=== PATIENT | male | born 1945 | race Caucasian/White ===

== ENCOUNTER 2021-04-14 18:05 | Observation (INO) | payer MEDICARE, SELFPAY ==
--- NOTE | 2021-04-14 | ECG_ITS ---
APPROVED REPORT Exam: Resting ECG HR:90 bpm ECG Measurements Heart Rate 90 AXES AK 149 P 157 QRSd 145 QRS 253 QT 381 T 64 QTc 428 Conclusion ELECTRONIC ATRIAL PACEMAKER ELECTRONIC VENTRICULAR PACEMAKER ABNORMAL RHYTHM ECG UNCONFIRMED REPORT Electronically signed by : Alan Burgess MD 04/15/2021 15:02:46
[2021-04-14 18:10] VITALS: BP 137/77; PULSE 77; RESP 18; TEMP 36.8; O2SAT 98; BMI 24.7
[2021-04-14 18:12] VITALS: BMI 24.7
--- NOTE | 2021-04-14 18:13 | XR_ITS ---
PROCEDURE INFORMATION: Exam: XR Chest Exam date and time: 04/14/2021 6:13 PM Age: 75 years old Clinical indication: Shortness of breath; Additional info: Chest pain TECHNIQUE: Imaging protocol: XR of the chest. Views: 1 view. COMPARISON: No relevant prior studies available. FINDINGS: Tubes, catheters and devices: Pacemaker demonstrated. Lungs: The lungs are clear. No regions of consolidation or pleural effusion. Pleural spaces: No regions of pleural effusion. Heart/Mediastinum: Heart normal in size. Bones/joints: Sternotomy residuals. Incomplete visualization of cervical spine fusion. IMPRESSION: No evidence of acute cardiopulmonary disease.
--- NOTE | 2021-04-14 18:15 | PC.NURSE ---
Radiology at bedside
--- NOTE | 2021-04-14 18:20 | PC.NURSE ---
ED MD at
[2021-04-14 18:28] LABS: Basophils # 0.1 K/mm3 (0-0.2); Basophils % 1.3 % (0.1-2.0); Eosinophils # 0.2 K/mm3 (0.0-0.4); Hematocrit 41.5 % (42.0-52.0); Hemoglobin 13.3 g/dL (14.1-18.0); Lymphocytes % 31.3 % (10-50); Mean Corpuscular HGB Conc 32.2 g/dL (31.8-35.4); Mean Corpuscular Hemoglobin 30.5 pg (27.0-31.2); Mean Corpuscular Volume 94.8 fl (80-94); Mean Platelet Volume 7.6 fl (7.4-10.4); Monocytes # 0.3 K/mm3 (0.1-1.0); Monocytes % 5.1 % (1.7-9.3); Neutrophils # 3.8 K/mm3 (1.8-7.8); Neutrophils % 59.3 % (37.0-80.0); Platelet Count 231 K/mm3 (142-424); Red Blood Count 4.38 M/mm3 (4.60-6.20); Red Cell Distribution Width 13.6 % (11.5-17.5); White Blood Count 6.4 K/mm3 (4.8-10.8)
[2021-04-14 18:31] VITALS: BP 113/86; PULSE 90; RESP 18; O2SAT 97
--- NOTE | 2021-04-14 18:33 | HMH.EDCP ---
ED Disposition Clinical Impression: Unstable angina pectoris Disposition: Admitted As Inpatient Condition on Discharge: Fair - Critical Care Critical Care Time: No Attestation: On 04/14/21, the high probability of a clinically significant, sudden or life threatening deterioration of the following system(s) required my full and direct attention, intervention and personal management. The time I documented below is in addition to time spent performing reported procedures but includes the following listed in this critical care notation. Medical Decision Making - Medical Records Medical records reviewed: Yes: I reviewed the patient's medical records. - Luis Enrique Inquiry Pt receiving controlled substance: No Vital Signs: 04/14/21 18:10 04/14/21 18:31 04/14/21 19:00 Temperature 98.3 F Temperature Source Oral Pulse Rate 90 76 Pulse Rate [Left Radial] 77 Respiratory Rate 18 18 20 Blood Pressure 113/86 131/67 Blood Pressure [Right Arm] 137/77 Blood Pressure Mean 98 98 Blood Pressure Mean [Right Arm] 97 Blood Pressure Source [Right Arm] Automatic Cuff Blood Pressure Position [Right Arm] Sitting 02 Sat by Pulse Oximetry 98 97 95 Oxygen Delivery Method Room Air - Lab Data Lab Results 04/14/21 18:12: WBC 6.4, RBC 4.38 L, Hgb 13.3 L, Hct 41.5 L, MCV 94.8 H, MCH 30.5, MCHC 32.2, RDW 13.6, Plt Count 231, MPV 7.6, Neut % (Auto) 59.3, Lymph % (Auto) 31.3, [place] % (Auto) 5.1, Eos % (Auto) 3.0, Baso % (Auto) 1.3, Neut # (Auto) 3.8, Lymph # (Auto) 2.0, [place] # (Auto) 0.3, Eos # (Auto) 0.2, Baso # (Auto) 0.1 04/14/21 18:12: Sodium 131 L, Potassium 4.4, Chloride 99, Carbon Dioxide 23, Anion Gap 13.4, BUN 19, Creatinine 0.80, Estimated Creat Clear 62, Estimated GFR 94, Est GFR ( Amer) 114, Glucose 308 H, Calcium 9.1, Troponin I < 0.01 Result diagrams: 04/14/21 18:12 04/14/21 18:12 Orders (Tests/Meds): ORDERS Category Date Time Status Consult to Cardiology [CONS] Routine Cons 04/14/21 19:37 Active CXR --portable [XR chest portable] Stat Exams 04/14/21 18:13 Taken Troponin I Q3H Lab 04/14/21 21:15 Ordered Troponin I Q3H Lab 04/15/21 00:15 Ordered - Radiology Data #1 Image(s): Chest Image Reviewed: Yes I reviewed the patient's radiology results, Yes I reviewed the patient's radiology image, Yes I have reviewed radiologist's interpretation Preliminary Findings: Normal/NAD - ECG Data Tracing #1 I reviewed this ECG and interpreted as documented below: Ventricular rate at 90 bpm, electronic atrial ventricular pacemaker. Nonspecific changes. ECG initial impression date: 04/14/21 ECG initial impression time: 18:05 - Reevaluation(s) Time: 19:53 Reevaluation #1: On reevaluation, patient continues to endorse some intermittent chest pain. Given the patient's history I do feel he requires admission cardiac evaluation. Cardiology notified. Patient admitted to hospital for further evaluation and treatment. - FLORENCIA Score for Non-Stemi Age of Patient: 70-79 years old Heart Rate: 70-89 bpm Systolic Blood Pressure: 120-139 mmhg Serum Creatinine: <0.40 mg/dl CHF Killip Class: I-No CHF Other Risk Factors: None Non-Stemi Risk Score: 119 Risk Stratification: 109-140 = Intermediate Ri Medical Decision Narrative: 75-year-old male presented to the emergency department with some chest discomfort. Patient does have a history of significant coronary disease. Patient is actually pain-free at this time. Work-up initiated. Chest Pain HPI - General Chief Complaint: Chest Pain Stated Complaint: chest pain Time Seen by Provider: 04/14/21 18:15 Mode of Arrival: Ambulatory Limitations: No Limitations Description of Symptoms (Recalled from ER Triage Doc. by RN): to ed per pvt car with c/o rapid heart rate, anxiety starting last week went to hospital and is now wearing a halter monitor. pt appears anxious. pt denies any new changes in diet or meds. pt denies any chest pain states rapid hea
[2021-04-14 18:36] LABS: Anion Gap 13.4 mEq/L (5-15); Blood Urea Nitrogen 19 mg/dl (9-20); Calcium 9.1 mg/dl (8.4-10.2); Carbon Dioxide 23 mmol/L (22.0-30.0); Chloride 99 mmol/L (98-107); Creatinine Clearance Estimated 62 mL/min (50-200); Estimated Glomerular Filt Rate 94 ml/min (>60); GFR (African American) 114 ML/MIN (>60); Glucose 308 mg/dl (74-100); Potassium 4.4 mmoL/L (3.5-5.1); Sodium 131 mmol/L (136-145)
[2021-04-14 18:50] LABS: Troponin I < 0.01 ng/ml (0.00-0.034)
[2021-04-14 19:00] VITALS: BP 131/67; PULSE 76; RESP 20; O2SAT 95
[2021-04-14 20:32] LABS: Coronavirus 19, PCR Not Detected (NotDetected); Influenza A, PCR Not Detected (NotDetected); Influenza B, PCR Not Detected (NotDetected)
[2021-04-14 21:08] VITALS: BP 130/60; PULSE 77; RESP 18; TEMP 36.8; O2SAT 99
--- NOTE | 2021-04-14 21:17 | PC.NURSE ---
patient up to floor via wheelchair.
[2021-04-14 22:01] VITALS: BP 175/76; PULSE 85; RESP 18; TEMP 36.4; O2SAT 98
[2021-04-14 22:30] VITALS: O2SAT 98
[2021-04-14 22:57] LABS: Troponin I < 0.01 ng/ml (0.00-0.034)
[2021-04-15] VITALS (15 sets, daily range): BP systolic 126–163; BP diastolic 68–87; PULSE 70–90; RESP 17–20; TEMP 36.2–36.7; O2SAT 97–100; BMI 23.8; BMI 23.7
--- NOTE | 2021-04-15 | IR_ITS ---
APPROVED REPORT Patient Location: Inpatient PROCEDURES Left heart catheterization Left ventriculogram Selective coronary angiogram Selective engage left internal mammary artery Right internal mammary artery angiography Selective engagement of the saphenous vein graft to the circumflex artery Selective engagement of saphenous vein graft to the right coronary INDICATION Coronary artery disease, History of coronary bypass surgery, Unstable angina, Informed consent was obtained prior to the procedure. COMPLICATIONS None Estimated Blood Loss: Less than 10 mls TECHNIQUE One percent lidocaine used to anesthetize the right groin. The right femoral artery was accessed via the Seldinger technique and a 5 Pashto sheath was placed in the right femoral artery. A JL 4, JR4 catheter were used to perform left heart catheterization, left ventriculogram selective coronary angiography as well as selective engagement of the 2 vein grafts and the left internal mammary artery. Because the saphenous vein graft to the right coronary was not easily cannulated it was felt patient may have had a STEPHANIE graft therefore the JR4 catheter was placed in the right subclavian artery and nonselective angiography was performed. After it was determined the STEPHANIE was patent to the chest wall a multipurpose catheter was then placed into the ascending aorta and this catheter was used to cannulate the saphenous vein graft to the right port coronary artery where angiography was performed. At the end the procedure the apparatus was removed the sheath was removed and hemostasis was achieved using manual pressure patient was transferred to postop putting a stable addition at the end of the procedure the patient was transferred to the postop holding area in stable condition for sheath removal. ANGIOGRAPHIC RESULTS The left main artery Distally occluded The right coronary artery Proximally occluded The HAN ventriculogram reveals Preserved ejection fraction estimated 50 to 55% The left ventricular end-diastolic pressure 10 mmHg Left internal mammary artery is widely patent LAD Saphenous vein graft to circumflex artery has stents in the ostial proximal segment are widely patent. There is a venous valve in the mid segment which appears to create a 20 to 30% stenosis however the stenotic area is actually larger in diameter than the [place]ajo circumflex artery in which it anastomosis Saphenous vein graft to the distal dominant right coronary is widely patent STEPHANIE graft patent to the chest wall IMPRESSION Coronary disease as described above Preserved ejection fraction Normal left ventricular diastolic pressure PLAN 1. Treatment of endothelial dysfunction 2. Maximize antianginal medications 3. Maximize Ranexa and nitrates Electronically signed by : Esau Rivas MD 04/15/2021 12:55:34
[2021-04-15 01:06] LABS: Troponin I < 0.01 ng/ml (0.00-0.034)
[2021-04-15 06:11] LABS: POC Glucose,Bedside 253 (70-110)
[2021-04-15 06:39] LABS: Basophils # 0.1 K/mm3 (0-0.2); Eosinophils # 0.2 K/mm3 (0.0-0.4); Eosinophils % 4.2 % (0.1-12.0); Hematocrit 38.9 % (42.0-52.0); Hemoglobin 12.3 g/dL (14.1-18.0); Lymphocytes # 2.4 K/mm3 (0.7-4.5); Lymphocytes % 46.1 % (10-50); Mean Corpuscular HGB Conc 31.7 g/dL (31.8-35.4); Mean Corpuscular Hemoglobin 29.8 pg (27.0-31.2); Monocytes # 0.3 K/mm3 (0.1-1.0); Monocytes % 5.5 % (1.7-9.3); Neutrophils # 2.2 K/mm3 (1.8-7.8); Neutrophils % 43.3 % (37.0-80.0); Platelet Count 192 K/mm3 (142-424); Red Blood Count 4.14 M/mm3 (4.60-6.20); Red Cell Distribution Width 13.7 % (11.5-17.5); White Blood Count 5.2 K/mm3 (4.8-10.8)
--- NOTE | 2021-04-15 06:40 | PC.NURSE ---
pt slept most of night, pt denied any chest pain through the night, fsbs 263 this morning, pt a&ox 4, VSS, tele = NSR
[2021-04-15 06:47] LABS: Anion Gap 10.2 mEq/L (5-15); Blood Urea Nitrogen 17 mg/dl (9-20); Calcium 8.3 mg/dl (8.4-10.2); Carbon Dioxide 24 mmol/L (22.0-30.0); Chloride 103 mmol/L (98-107); Creatinine Clearance Estimated 60 mL/min (50-200); Estimated Glomerular Filt Rate 131 ml/min (>60); GFR (African American) 159 ML/MIN (>60); Glucose 304 mg/dl (74-100); Potassium 4.2 mmoL/L (3.5-5.1); Sodium 133 mmol/L (136-145)
--- NOTE | 2021-04-15 07:34 | HMH.PHAVTE ---
[facility] Pharmacy VTE Monitoring - Patient Demographics Admission date: 04/15/21 Report Date: 04/15/21 Time: 07:34 Allergies/Adverse Reactions: Patient Allergies No Known Allergies Allergy (Verified 01/01/19 10:36) Height: 1.68 m Weight: 67.404 kg Patient Problems: Current Active Problems Unstable angina pectoris (Acute) - VTE Risk Labs: VTE Related Lab Results Hgb 12.3 g/dL (14.1-18.0) L 04/15/21 05:41 Hct 38.9 % (42.0-52.0) L 04/15/21 05:41 Plt Count 192 K/mm3 (142-424) 04/15/21 05:41 BUN 17 mg/dl (9-20) 04/15/21 05:41 Creatinine 0.60 mg/dl (0.66-1.25) L D 04/15/21 05:41 Estimated Creat Clear 60 mL/min (50-200) 04/15/21 05:41 Was VTE Risk Assessment Performed: Yes VTE Score: 3 VTE Risk Level: Low Risk Clinical Trial Participant: No - Prophylaxis VTE Prophylaxis Ordered?: Yes Types of VTE Prophylaxis: TEDS Knee High, Pharmacological Pharmacologic Type: Heparin
--- NOTE | 2021-04-15 08:03 | HMH.HP ---
*Admission Date: 04/15/21 *Chief complaint: chest pain *History of present illness: Mr. Fontaine is a pleasant 75-year-old male with extensive cardiac history. Had CABG performed in 2009. Has had a subsequent left heart cath in 2019, no stents at that time per my understanding. Came to the ER due to progressive chest pain over the past few weeks. He had just seen his doctor (Dr. Davis) yesterday for progressive chest pain with exertion and at rest. His primary care contacted cardiology who recommended patient come in for further work-up. On arrival, he was found to have significant hyperglycemia, elevated blood pressure, Serial troponins within normal range. Notes he had a response to nitroglycerin for his chest pain after taking 2 tabs. Admitted for further work-up. Cardiology consulted, has seen the patient this morning. Planning for left heart cath today. Patient denies any shortness of breath, nausea, vomiting, diarrhea. Alert and oriented x3. [facility] History I have reviewed the patient's past medical history: Yes Medical History: Reports:: Carotid Stenosis, Coronary Artery Disease, Diabetes Mellitus Type 2, Gastroesophageal Reflux Disease(GERD), Hyperlipidemia, Hypertension, Internal Pacemaker Denies:: Cancer, Diabetes Mellitus Type 1, MRSA *Have you ever received a pneumonia vaccine?: No *Have you received a flu vaccine this season?: Yes Other Medical History: Reports: Cataracts Other Surgeries: Yes: CABG, Cardiac Catheterization, Hernia Repair, Pacemaker Fractures: Yes (broken collar bone) - *Social History Last grade of school completed: GED Smoking Status: Former smoker Smoking End Date: 40 years ago Alcohol Intake: never Substance Use Type: denies use *Occupational Status:: employed, retired Housing: house Household Members: spouse *Travel in the last 8 weeks: None Family Hx:: Hypertension Review of Systems - Review of Systems Review of systems:: pertinent systems reviewed and negative unless documented below (14 point review of systems performed, pertinent positives and negatives as per HPI) - *Neurologic Denies headache(s) Meds Home Medications Medication Instructions Recorded Confirmed Type aspirin 81 mg tablet,delayed 81 mg PO DAILY 01/01/19 04/14/21 History release metformin 500 mg tablet 500 mg PO BID 01/01/19 04/14/21 History Clopidogrel Bisulfate [Plavix] 75 mg PO DAILY 04/14/21 04/14/21 History Multivitamin 1 tab PO DAILY 04/15/21 04/15/21 History Allergies Allergy/AdvReac Type Severity Reaction Status Date / Time No Known Allergies Allergy Verified 01/01/19 10:36 Exam Vital signs and Labs for Last 24 Hours: Temp Pulse Resp BP Pulse Ox 98.0 F 77 20 163/87 H 100 04/15/21 07:46 04/15/21 07:46 04/15/21 07:46 04/15/21 07:46 04/15/21 07:46 Laboratory Results - last 24 hr 04/14/21 18:12: WBC 6.4, RBC 4.38 L, Hgb 13.3 L, Hct 41.5 L, MCV 94.8 H, MCH 30.5, MCHC 32.2, RDW 13.6, Plt Count 231, MPV 7.6, Neut % (Auto) 59.3, Lymph % (Auto) 31.3, [place] % (Auto) 5.1, Eos % (Auto) 3.0, Baso % (Auto) 1.3, Neut # (Auto) 3.8, Lymph # (Auto) 2.0, [place] # (Auto) 0.3, Eos # (Auto) 0.2, Baso # (Auto) 0.1 04/14/21 18:12: Sodium 131 L, Potassium 4.4, Chloride 99, Carbon Dioxide 23, Anion Gap 13.4, BUN 19, Creatinine 0.80, Estimated Creat Clear 62, Estimated GFR 94, Est GFR ( Amer) 114, Glucose 308 H, Calcium 9.1, Troponin I < 0.01 04/14/21 20:30: SARS-CoV-2 (PCR) Not detected, Influenza A Untype (PCR) Not detected, Influenza Type B (PCR) Not detected 04/14/21 21:45: Troponin I < 0.01 04/14/21 22:34: POC Glucose 253 H 04/15/21 00:17: Troponin I < 0.01 04/15/21 05:41: WBC 5.2, RBC 4.14 L, Hgb 12.3 L, Hct 38.9 L, MCV 94.0, MCH 29.8, MCHC 31.7 L, RDW 13.7, Plt Count 192, MPV 8.0, Neut % (Auto) 43.3, Lymph % (Auto) 46.1, [place] % (Auto) 5.5, Eos % (Auto) 4.2, Baso % (Auto) 1.0, Neut # (Auto) 2.2, Lymph # (Auto) 2.4, [place] # (Auto) 0.3, Eos # (Auto) 0.2, Baso # (Auto) 0.1 04/15/21 05:41: Sodium 1
--- NOTE | 2021-04-15 08:06 | HMH.CNCARD ---
History of Present Illness Consult date: 04/15/21 Requesting physician: David Larkin Consult reason: chest pain Chief complaint: UAP Additional Medical History:: 1. Diabetes mellitus, poorly controlled with patient reported hemoglobin A1c of 14 2. Coronary artery disease with history of bypass in 2009 A. Left heart catheterization, Dr. oJn Blanch, no stenting per patient B. Unstable angina pectoris 04/2021 3. History of pacemaker insertion, 2009, patient is unsure of brand 4. Right carotid bruit on exam 04/15/2021 5. Peripheral vascular disease with history of prior intervention per patient, records unavailable at this time 6. Remote history of tobacco use 7. Hypertension 8. Hyperlipidemia History of present illness: 75-year-old white male with coronary disease as noted above presented to [facility] for admission due to 6 months history of increasing exertional chest discomfort. Patient was seen by his family doctor Dr. Davis yesterday and instructed to be seen by Cardiology for further evaluation but since patient has previously seen Dr. Rivas he elected to come here for evaluation and admission. He did take 2 nitroglycerin at home with improvement in symptoms. Patient has had no further chest pain overnight. His reported troponins have returned normal x3 overnight his EKG shows a paced rhythm. Patient takes only an aspirin along with his Metformin and does relate dietary indiscretion and a hemoglobin A1c of 14. Discussed with Dr. Rivas and recommendation for left heart catheterization with grafts today. [facility] History Medical History: Reports:: Carotid Stenosis, Coronary Artery Disease, Diabetes Mellitus Type 2, Gastroesophageal Reflux Disease(GERD), Hyperlipidemia, Hypertension, Internal Pacemaker Denies:: Cancer, Diabetes Mellitus Type 1, MRSA *Have you ever received a pneumonia vaccine?: No *Have you received a flu vaccine this season?: Yes Other Medical History: Reports: Cataracts Other Surgeries: Yes: CABG, Cardiac Catheterization, Hernia Repair, Pacemaker Fractures: Yes (broken collar bone) - *Social History Last grade of school completed: GED Smoking Status: Former smoker Smoking End Date: 40 years ago Alcohol Intake: never Substance Use Type: denies use *Occupational Status:: employed, retired Housing: house Household Members: spouse *Travel in the last 8 weeks: None Family Hx:: Hypertension Meds Home Medications Medication Instructions Recorded Confirmed Type aspirin 81 mg tablet,delayed 81 mg PO DAILY 01/01/19 04/14/21 History release metformin 500 mg tablet 500 mg PO BID 01/01/19 04/14/21 History Clopidogrel Bisulfate [Plavix] 75 mg PO DAILY 04/14/21 04/14/21 History Multivitamin 1 tab PO DAILY 04/15/21 04/15/21 History Allergies Allergy/AdvReac Type Severity Reaction Status Date / Time No Known Allergies Allergy Verified 01/01/19 10:36 Exam Vital signs and Labs for Last 24 Hours: Temp Pulse Resp BP Pulse Ox 98.0 F 77 20 163/87 H 100 04/15/21 07:46 04/15/21 07:46 04/15/21 07:46 04/15/21 07:46 04/15/21 07:46 Laboratory Results - last 24 hr 04/14/21 18:12: WBC 6.4, RBC 4.38 L, Hgb 13.3 L, Hct 41.5 L, MCV 94.8 H, MCH 30.5, MCHC 32.2, RDW 13.6, Plt Count 231, MPV 7.6, Neut % (Auto) 59.3, Lymph % (Auto) 31.3, [place] % (Auto) 5.1, Eos % (Auto) 3.0, Baso % (Auto) 1.3, Neut # (Auto) 3.8, Lymph # (Auto) 2.0, [place] # (Auto) 0.3, Eos # (Auto) 0.2, Baso # (Auto) 0.1 04/14/21 18:12: Sodium 131 L, Potassium 4.4, Chloride 99, Carbon Dioxide 23, Anion Gap 13.4, BUN 19, Creatinine 0.80, Estimated Creat Clear 62, Estimated GFR 94, Est GFR ( Amer) 114, Glucose 308 H, Calcium 9.1, Troponin I < 0.01 04/14/21 20:30: SARS-CoV-2 (PCR) Not detected, Influenza A Untype (PCR) Not detected, Influenza Type B (PCR) Not detected 04/14/21 21:45: Troponin I < 0.01 04/14/21 22:34: POC Glucose 253 H 04/15/21 00:17: Troponin I < 0.01 04/15/21 05:41: WBC 5.2, RBC 4.14 L
--- NOTE | 2021-04-15 08:14 | HMH.PHAINT ---
Home med rec complete
[2021-04-15 10:26] LABS: Hemoglobin A1C 13.7 % (4.0-6.0)
--- NOTE | 2021-04-15 11:15 | PC.NURSE ---
medical lab scientist staff at bedside to take patient for heart cath
--- NOTE | 2021-04-15 12:39 | CA_ITS ---
FINAL REPORT TECHNIQUE: Color Doppler, duplex Doppler and grayosn scale sonography of the bilateral neck arterial vasculature was performed. Velocities were measured in the carotid arteries. Stenosis evaluation based on the validated velocity criteria. CLINICAL HISTORY: RT CARTOID BRUIT,CAD,DM,HTN,HLD FINDINGS: The peak systolic velocity of the right common carotid artery is 46 cm/s. The peak systolic velocity of the right internal carotid artery is 270 cm/s and end diastolic velocity 114 cm/s. The ICA/CCA ratio is 9.34. A large amount of plaque is present. The right external carotid artery is patent. The right vertebral artery is patent with antegrade flow. There is no definite flow is identified in the left common carotid artery. The peak systolic velocity of the left internal carotid artery is 137 cm/s and end diastolic velocity 25 cm/s. This is probably due to a greater than 90% stenosis of the left common carotid artery. A large amount of plaque is present. The left external carotid artery is patent.The left vertebral artery is patent with antegrade flow. IMPRESSION: 70-99 % right carotid stenosis. Greater than 90% left carotid stenosis. Bilateral patent vertebral arteries with antegrade flow. Recommend CTA or catheter angiogram could further evaluate. Preliminary results were called to DARYL Stanley by the medical technologist generalist at the time of exam. Reviewed, Interpreted and Dictated by Dwayne Quiñonez III, MD Transcribed by Chanel Bojorquez Authenticated by Dwayne Quiñonez III, MD on 04/15/2021 03:32:[address] [facility]
--- NOTE | 2021-04-15 14:50 | CT_ITS ---
FINAL REPORT TECHNIQUE: Thin section axial CT with IV contrast supplemented with multiplanar reconstruction under CT angiogram protocol. This study was performed with techniques to keep radiation doses as low as reasonably achievable (ALARA). Individualized dose reduction techniques using automated exposure control or adjustment of mA and/or kV according to the patient''s size were employed. NASCET criteria was utilized during interpretation. CLINICAL HISTORY: bilateral carotid artery disease FINDINGS: Right carotid: There is mild narrowing of the distal right common carotid artery with 90% stenosis at the level of the carotid bulb. The more distal right ICA is patent. Mild stenosis is seen of the distal right ICA, less than 50%. Right ECA is patent. The left common carotid artery is occluded proximally with collateral fill of a small caliber left internal carotid artery from left external carotid artery collaterals. There is moderate stenosis of the distal left ICA of approximately 50%. Vertebral: Left vertebral artery is dominant. No significant stenosis is present. IMPRESSION: 90% stenosis of the right internal carotid artery at the bulb. Occlusion of the left common carotid artery with reconstitution of a small caliber internal carotid artery due to left external carotid artery collaterals. Reviewed, Interpreted and Dictated by Dwayne Quiñonez III, MD Transcribed by Jonna Vera Authenticated by Dwayne Quiñonez III, MD on 04/15/2021 04:54:33 PM [facility]
[2021-04-15 17:39] LABS: POC Glucose,Bedside 207 (70-110)
--- NOTE | 2021-04-15 18:04 | [facility].DCSUM ---
General - General Admission date:: 04/14/21 Discharge date: 04/15/21 HPI HPI: Mr. Fontaine is a pleasant 75-year-old male with extensive cardiac history. Had CABG performed in 2009. Has had a subsequent left heart cath in 2019, no stents at that time per my understanding. Came to the ER due to progressive chest pain over the past few weeks. He had just seen his doctor (Dr. Davis) yesterday for progressive chest pain with exertion and at rest. His primary care contacted cardiology who recommended patient come in for further work-up. On arrival, he was found to have significant hyperglycemia, elevated blood pressure, Serial troponins within normal range. Notes he had a response to nitroglycerin for his chest pain after taking 2 tabs. Admitted for further work-up. Cardiology consulted, has seen the patient this morning. Planning for left heart cath today. Patient denies any shortness of breath, nausea, vomiting, diarrhea. Alert and oriented x3. Hospital Course Hospital Course: 75-year-old male admitted for unstable angina. Cardiology consulted, appreciate their assistance in care. Patient's cardiac history consists of the followin. UAP in pt with prior CABG in 2009, recommend LHC with grafts today. Risk, benefits and procedure explained to patient he agrees to proceed. Decision to take patient for cardiac cath given unstable angina. ANGIOGRAPHIC RESULTS The left main artery Distally occluded The right coronary artery Proximally occluded The HAN ventriculogram reveals Preserved ejection fraction estimated 50 to 55% The left ventricular end-diastolic pressure 10 mmHg Left internal mammary artery is widely patent LAD Saphenous vein graft to circumflex artery has stents in the ostial proximal segment are widely patent. There is a venous valve in the mid segment which appears to create a 20 to 30% stenosis however the stenotic area is actually larger in diameter than the [place] circumflex artery in which it anastomosis Saphenous vein graft to the distal dominant right coronary is widely patent STEPHANIE graft patent to the chest wall IMPRESSION Coronary disease as described above Preserved ejection fraction Normal left ventricular diastolic pressure Additionally had imaging of his carotids with ultrasound and CTA. Concernedly that showed significant stenosis. Findings from ultrasound and CTA as follows: Carotid Duplex IMPRESSION: 70-99 % right carotid stenosis. Greater than 90% left carotid stenosis. Bilateral patent vertebral arteries with antegrade flow. Recommend CTA or catheter angiogram could further evaluate. CTA Neck IMPRESSION: 90% stenosis of the right internal carotid artery at the bulb. Occlusion of the left common carotid artery with reconstitution of a small caliber internal carotid artery due to left external carotid artery collaterals. Patient needs vascular surgery referral for further discussion. Had extensive discussion at bedside with patient and his , they are hesitant for any procedures due to risk of stroke. While I understand this concern, the severity of bilateral stenosis is critical and higher risk of complications including stroke or then a procedure to improve patency. Would strongly recommend reevaluation with discussion with primary care. Additional problems during admission, diabetes. Uncontrolled. -A1c 13.7. Sliding scale insulin during admission. Patient reportedly on long-acting insulin that was just started at home. Continue Metformin and long-acting insulin. Would benefit from addition of GLP-1 and close monitoring. No medication started for blood pressure given the critical stenosis in his carotid arteries. Would allow for some permissive hypertension for improved carotid blood flow. Bishop stable for discharge home. Recommend close follow-up with patient's PCP. Resumed home medications. No new medications at time of discharge. Objective Vital signs:
== END 2021-04-15 18:35 | disposition home or self-care (01) ==
LOC: ER 18:30 → 2ND 19:53
PROVIDERS: Internal Medicine; Admitting Provider Internal Medicine Adolescent Medicine; Emergency Provider Emergency Medicine; PCP Family Medicine; Visit Provider Internal Medicine Adolescent Medicine
DX: I25.110 Atherosclerotic heart disease of native coronary artery with unstable angina pectoris (principal); Z95.1 Presence of aortocoronary bypass graft; E11.9 Type 2 diabetes mellitus without complications; Z79.4 Long term (current) use of insulin; I65.23 Occlusion and stenosis of bilateral carotid arteries; Z95.0 Presence of cardiac pacemaker; I10 Essential (primary) hypertension; Z79.899 Other long term (current) drug therapy; Z20.822 Contact with and (suspected) exposure to COVID-19
CPT/HCPCS: G0378; 36415; 70498; 71045; 80048; 82962; 83036; 84484; 85025; 93005; 93459; 93880; 99152; 99285; C1725; C1769; C1894; C9803; J1644; Q9967; U0003; U0005

== ENCOUNTER 2023-02-27 15:11 | Outpatient (CLI) | payer MEDICARE, SELFPAY ==
--- NOTE | 2023-02-27 | CA_ITS ---
APPROVED REPORT EXAM: Comprehensive 2D, Doppler, and color-flow Echocardiogram Ship Purser: Ailyn Cadena RT(R) Ht: 5 ft 6 in Wt: 142lbs BSA: 1.73 BP: 152/62 mmHg Indications: pre op clearance for gallbladder surgery, hx AV replacement (porcine) 2010, CABG 2010, AFIB, CAD, pacemaker, DANIEL, ex smoker, HTN, HLD 2D Dimensions LVEF (Rizzo's) 72.20 % M: 52 - 72 LV Volume 69.10 mL M: 62 - 150 LV Volume Index 39.9 mL/m2 M: 34 - 74 LA Volume 63.80 mL LA Volume Index 36.88 mL/m2 (M/F) 16-34 EF AP4 65.20 % EF AP2 68.6 % EF BP 72.2 % GL Strain -17.2 % M-Mode Dimensions RVDd 2.39 cm (0.9-2.6) LA Diam 4.27 cm (1.9-4.0) LVDd 4.02 cm (3.5-5.7) LVDs 2.95 cm (3.5-5.7) IVSd 0.85 cm (0.6-1.1) PWd 0.71 cm (0.6-1.1) EF (Teich) 52.50% FS 26.60% EDV (Teich) 70.80 mL ESV (Teich) 33.60 mL LV Diastology E Decel Time 230 (160-240 msec) E/A Ratio 2.8 Aortic Valve DANIEL Index 0.89 cm2/m2 AoV Peak Eric. 216.0 (50-130 cm/s) AO Peak GR. 18.70 mmHg AO Mean GR. 9.20 (<5 mmHg) AO VTI 43.5 (18-25 cm) DANIEL (VTI) 1.58 (2.5-4.5 cm2) Mitral Valve MV E Max Eric. 170.0 (40-130 cm/s) MV A Velocity 61.0 (40-130 cm/s) E/A Ratio 2.81 MV PHT 67.0 ms Tricuspid Valve TR P. Velocity 295.00 cm/s RAP Estimate 10.00 mmHg RVSP 44.80 mmHg Left Ventricle The left ventricle is normal size. The left ventricular systolic function is normal. The left ventricular ejection fraction is within the normal range. There is normal left ventricular wall thickness. There is normal LV segmental wall motion. Grade 2 diastolic dysfunction is present. LVEF is 60%. Right Ventricle The right ventricle is severely dilated. Right ventricle is mildly hypokinetic. There is a device lead noted in the right ventricle. Atria Left atrium is severely dilated. Right atrium is severely dilated. There is no Doppler evidence of interatrial shunt. Aortic Valve s/p bioprosthetic AVR. The prosthesis is well-seated. Peak velocity 2.1 m/s. Mean AV gradient 9 mmHg. Max AV gradient 20 mmHg. Acceleration time 54 ms. Mild central aortic regurgitation. Mitral Valve Mild mitral annular calcification. The mitral valve leaflets are mildly thickened. No evidence of mitral valve stenosis. Mild mitral regurgitation. Tricuspid Valve The tricuspid valve leaflets are thin and pliable. Severe tricuspid regurgitation. RVSP is 45-50 mmHg. Pulmonic Valve The pulmonary valve is normal in structure. Moderate pulmonic regurgitation. Great Vessels The aortic root is normal in size. The ascending aorta is normal in size. The IVC is dilated and collapses < 50% with respirophasic variation. The RA pressure is estimated at 15 mmHg. Pericardium There is no pericardial effusion. Other Information Study Quality: Fair Conclusion Normal LV systolic function. Grade 2 diastolic dysfunction. Severely dilated RV with mild reduction in RV function. Severe biatrial dilation. s/p bioprosthetic AVR. Mild central AI. AV parameters are overall in acceptable range. Mild MR. Severe TR. RVSP 45-50 mmHg. The filling pressures are elevated in this study. Clinical correlation is recommended to assess for further optimization pre-operatively. No prior TTEs are available for comparison. Electronically signed by : Katelin Vang MD 02/28/2023 11:08:06
== END 2023-02-27 23:59 ==
LOC: RT 15:13
PROVIDERS: PCP Nurse Practitioner Family; Visit Provider Internal Medicine
DX: Z01.810 Encounter for preprocedural cardiovascular examination (principal); R94.31 Abnormal electrocardiogram [ECG] [EKG]
CPT/HCPCS: 93306